=== PATIENT | female | born 1950 | race Caucasian/White ===

== ENCOUNTER 2017-06-08 23:30 | Observation (INO) | payer BC, MEDICARE ==
--- NOTE | 2017-06-09 01:00 | US ---
EXAMINATION TYPE: US transvaginal DATE OF EXAM: 06/09/2017 COMPARISON: NONE CLINICAL HISTORY: Pain. Pain f/u to outside ct scan. Exam limitations due to right adnexal mass. TECHNIQUE: Transabdominal (TA). Transabdominal sonographic images of the pelvis were acquired. EXAM MEASUREMENTS: Uterus: 8.0 x 4.8 x 5.9 cm Endometrial Stripe: 1.0 cm 1. Uterus: Anteverted 2. Endometrium: Appears enlarged 3. Right Ovary: Appears to be16.2 x19 x 20.3 cm 4. Left Ovary: Obscured by overlying bowel gas. 5. Bilateral Adnexa: Complex septated right ovary vs mass measuring 16.2 x 19 x 20.3cm with small am ount of blood flow seen. 6. 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 No rmal uterus. No free fluid.
--- NOTE | 2017-06-09 01:04 | ED ---
Abdominal Pain HPI - General Chief Complaint: Abdominal Pain Stated Complaint: abd pain Time Seen by Provider: 06/08/17 23:43 Source: EMS, RN notes reviewed, old records reviewed Mode of arrival: EMS Limitations: no limitations - History of Present Illness Initial Comments: This patient is a 66-year-old female who is a transfer from [facility] with findings of a very large abdominal mass. It is believed to be a large right ovarian cyst. She initially presented to [facility] due to abdominal pain and bloating as well as some back pain. Patient reports that she's had no fever or chills. No vomiting or diarrhea. She also reports that she's had a known history of compression fractures to her lumbar spine. She states she sees his lead painter for this. Patient reports that she is not a drinker, and she denies any chest pain or pressure. No dyspnea or coughing. Patient had extensive evaluation at [facility]. Patient's lab work was reviewed to be relatively normal. Patient reports that her SENIOR INTEGRATION ARCHITECT is Dr. Rosenberg. - Related Data Home Medications Medication Instructions Recorded Confirmed Enalapril Maleate [Enalapril 20 mg PO BID 04/08/14 03/18/15 Maleate] Fenofibrate [Fenofibrate] 160 mg PO DAILY 04/08/14 03/18/15 Fish Oil/Dha/Epa [Fish Oil 1,200 1 each PO DAILY 04/08/14 03/18/15 mg Fish Oil] Furosemide [Furosemide] 40 mg PO DAILY 04/08/14 03/18/15 Multivitamin with Iron [Daily 1 each PO DAILY 04/08/14 03/18/15 Multivitamin with Iron] Potassium Chloride [Klor-Con M10] 10 meq PO DAILY 04/08/14 03/18/15 Propranolol HCl [Propranolol HCl 120 mg PO HS 04/08/14 03/18/15 ER] RX: Aspirin 81 mg PO DAILY 04/08/14 03/18/15 RX: Biotin 10,000 mcg PO DAILY 04/08/14 03/18/15 Rosuvastatin [Crestor] 20 mg PO HS 04/08/14 03/18/15 metFORMIN HCL [metFORMIN HCL] 1,000 mg PO BID 04/08/14 03/18/15 Cholecalciferol [Vitamin D3] 2,000 unit PO DAILY 03/14/15 03/18/15 Estroven (Unknown Dose) 1 tab PO DAILY 03/14/15 03/14/15 Glucosam/Lio-Msm1/C/Oren/Bosw 1 each PO DAILY 03/14/15 03/18/15 [Glucosamine-Chondroitin Tablet] amLODIPine [Norvasc] 5 mg PO HS 03/14/15 03/18/15 Allergies Allergy/AdvReac Type Severity Reaction Status Date / Time nitroglycerin Allergy Severe BP DROPPED Verified 03/14/15 14:16 EXTREMELY LOW Penicillins Allergy Mild Rash/Hives Verified 03/14/15 14:16 erythromycin base AdvReac Mild HEADACHE Verified 03/14/15 14:16 codeine AdvReac Confusion Verified 03/14/15 14:16 Review of Systems ROS Statement: Those systems with pertinent positive or pertinent negative responses have been documented in the HPI. ROS Other: All systems not noted in ROS Statement are negative. Past Medical History Past Medical History: Diabetes Mellitus, Hyperlipidemia, Hypertension Additional Past Medical History / Comment(s): HEART MURMUR, HX OF HEPATITIS @ 4 YRS OLD, HX OF ANEMIA. , HAVING DIFFICULTY PASSING STOOL SINCE SHE HAD A HEMATOMA ON HER BUTTOCK FROM A FALL JAN 2014. History of Any Multi-Drug Resistant Organisms: MRSA Date of last positivie culture/infection: 2010 MDRO Source:: BEE STING Past Surgical History: Section Additional Past Surgical History / Comment(s): PARATHYROID,TRIGGER FINGERS, C- SECTION X3, I & D OF HEMATOMA ON LEFT BUTTOCK. Past Anesthesia/Blood Transfusion Reactions: No Reported Reaction Past Psychological History: Depression Smoking Status: Never smoker Past Alcohol Use History: None Reported Past Drug Use History: None Reported - Past Family History Mother Family Medical History: No Reported History General Exam - General Exam Comments Initial Comments: This is a 66-year-old female. Patient is pleasant. No acute distress. Limitations: no limitations General appearance: alert, in no apparent distress Head exam: Present: atraumatic, normocephalic, normal inspection Eye exam: Present: normal appearance, PERRL, EOMI. Absent: scleral icterus, conjunctival injection, periorbital swelling ENT exam: Present: normal exam Neck exam: Present: normal inspection. Absent: tenderness, meningismus, lymphadenopathy Respiratory exam: Present: normal lung sounds bilaterally. Absent: respiratory distress, wheezes, rales, rhonchi, stridor Cardiovascular Exam: Present: regular rate, normal rhythm, normal heart sounds. Absent: systolic murmur, diastolic murmur, rubs, gallop, clicks GI/Abdominal exam: Present: soft, tenderness (Patient has a protuberant abdomen evidence of large firm mass noted while palpating the abdomen.), normal bowel sounds. Absent: distended, guarding, rebound, rigid Extremities exam: Present: normal inspection, full ROM, normal capillary refill. Absent: tenderness, pedal edema, joint swelling, calf tenderness Back exam: Present: normal inspection Neurological exam: Present: alert, oriented X3, CN II-XII intact Psychiatric exam: Present: normal affect, normal mood Course Vital Signs 06/08/17 23:33 Temperature 98.2 F Pulse Rate 74 Respiratory 16 Rate Blood Pressure 156/76 O2 Sat by Pulse 95 Oximetry Medical Decision Making - Medical Decision Making This patient is a 66-year-old female transferred from [facility] for very large ovarian mass. He appears the patient has a lobulated 24 cm x 18 cm midline abdomen mass rising from her right ovary. Patient had extensive workup at [facility]. Her labwork is all reviewed and normal. She does have very significant abdominal distention and a firm mass noted on palpation. Patient was transferred here for further evaluation and gynecologic consult. I did obtain more blood work including CBC, and we'll send a CEA 125 test. He completed ultrasound which shows the cyst again. Patient informed of all these. She does state that her SENIOR INTEGRATION ARCHITECT is Dr. De Leon. For this large mass patient will be admitted at this time to her primary care doctor consults to Dr. Rosenberg for possible surgery. All questions were answered and patient agrees to admission. - Lab Data Result diagrams: 06/09/17 01:16 Lab Results 06/09/17 Range/Units 01:16 WBC 10.2 (3.8-10.6) k/uL RBC 5.42 H (3.80-5.40) m/uL Hgb 15.5 (11.4-16.0) gm/dL Hct 45.8 (34.0-46.0) % MCV 84.6 (80.0-100.0) fL MCH 28.6 (25.0-35.0) pg MCHC 33.8 (31.0-37.0) g/dL RDW 13.0 (11.5-15.5) % Plt Count 303 (150-450) k/uL Neutrophils % 92 % Lymphocytes % 6 % Monocytes % 1 % Eosinophils % 0 % Basophils % 0 % Neutrophils # 9.3 H (1.3-7.7) k/uL Lymphocytes # 0.6 L (1.0-4.8) k/uL Monocytes # 0.1 (0-1.0) k/uL Eosinophils # 0.0 (0-0.7) k/uL Basophils # 0.0 (0-0.2) k/uL - Radiology Data Radiology results: report reviewed Patient had a CT scan performed at [facility]. This was uploaded into our PACS system. The CT lumbar spine without contrast shows evidence of spondylolisthesis of L5 secondary L5 L1 spinal will listhesis. This appears chronic. No fractures noted. No evidence of bony spinal stenosis. There is a developing the adequate spinal no. Patient's CT abdomen and pelvis with contrast showed no evidence of a very large new cystic pelvic mass in the midline. Probably arising from the left ovary. Uterus is displaced to the right side. A cystic ovarian tumor. Mild colonic diverticulosis. No evidence of diverticulitis. There is clearing of the cystic area on the right ovary compared to old exam. The ovarian mass measures 24 x 18 cm in the midline of the abdomen. Ultrasound was performed to this facility. There is a multi septated large cystic pelvic mass consistent with right ovarian tumor. Normal uterus. No free fluid. Disposition Clinical Impression: Ovarian mass, right, Abdominal pain Disposition: ADMITTED IP TO THIS HOSP Condition: Stable Referrals: Rob Plaza MD [Primary Care Provider] - 1-2 days Time of Disposition: 01:35
[2017-06-09] MEDS: SODIUM CHLORIDE 0.9% 1,000 ML IV SCH ×3 (01:08→19:54)
[2017-06-09 01:22] LABS: Basophils % (A) 0 %; Eosinophils % (A) 0 %; HCT 45.8 % (34.0-46.0); HGB 15.5 gm/dL (11.4-16.0); Lymphocytes # (A) 0.6 k/uL (1.0-4.8); Lymphocytes % (A) 6 %; MCH 28.6 pg (25.0-35.0); MCHC 33.8 g/dL (31.0-37.0); MCV 84.6 fL (80.0-100.0); Mean Platelet Volume 7.4; Monocytes # (A) 0.1 k/uL (0-1.0); Monocytes % (A) 1 %; Neutrophils # (A) 9.3 k/uL (1.3-7.7); Neutrophils % (A) 92 %; Platelet Count 303 k/uL (150-450); RBC 5.42 m/uL (3.80-5.40); WBC 10.2 k/uL (3.8-10.6)
[2017-06-09] MEDS ORDERED: ESCITALOPRAM 10 MG TAB PO STA (01:29)
[2017-06-09] MEDS ORDERED: ATORVASTATIN 40 MG TAB PO STA (01:29)
[2017-06-09] MEDS ORDERED: amLODIPine 5 MG TAB PO STA (01:29)
[2017-06-09 01:33] LABS: Partial Thromboplastin Time 23.2 sec (22.0-30.0)
[2017-06-09] MEDS ORDERED: BISACODYL 5 MG TABLET.DR PO PRN (01:38)
[2017-06-09] MEDS ORDERED: NALOXONE 0.4 MG/ML 1 ML VIAL IV PRN (01:38)
[2017-06-09] MEDS ORDERED: ONDANSETRON 4 MG/2 ML VIAL IVP PRN (01:38)
[2017-06-09 01:40] LABS: Albumin 4.6 g/dL (3.5-5.0); Calcium 9.9 mg/dL (8.4-10.2); Total Bilirubin 0.9 mg/dL (0.2-1.3); Total Protein 7.6 g/dL (6.3-8.2)
[2017-06-09 01:41] LABS: Potassium 4.7 mmol/L (3.5-5.1)
[2017-06-09 02:17] LABS: Appearance,Urine Clear (Clear); Bilirubin,Urine Negative (Negative); Blood,Urine Negative (Negative); Color,Urine Light Yellow; Glucose,Urine (UA) 3+ (Negative); Ketones,Urine Negative (Negative); Leukocyte Esterase,Urine Negative (Negative); Nitrite,Urine Negative (Negative); Protein,Urine Negative (Negative); Specific Gravity,Urine 1.033 (1.001-1.035); Urobilinogen,Urine <2.0 mg/dL (<2.0)
[2017-06-09] MEDS: MORPHINE SULFATE 4 MG/ML SYRINGE IV PRN ×2 (02:35→06:18)
[2017-06-09] MEDS: KETOROLAC 30 MG/ML 1 ML VIAL IVP PRN ×2 (04:00→11:23)
[2017-06-09 04:23] VITALS: BMI 39.1
[2017-06-09] MEDS ORDERED: NON-FORMULARY DRUG (Biotin [Biotin] 10,000 MCG) PO SCH (09:00)
[2017-06-09] MEDS ORDERED: ESTROVEN PO SCH (09:00)
[2017-06-09] MEDS ORDERED: NON-FORMULARY DRUG (Fish Oil/Dha/Epa [Fish Oil 1,200 Mg Fish Oil] 1 EACH) PO SCH (09:00)
[2017-06-09] MEDS ORDERED: PANTOPRAZOLE 40 MG/10 ML VIAL IV SCH (09:00)
[2017-06-09] MEDS ORDERED: NON-FORMULARY DRUG (Glucosam/Chon-Msm1/C/Mang/Bosw [Glucosamine-Chondroitin Tablet] 1 EACH PO SCH (09:00)
--- NOTE | 2017-06-09 10:20 | P.HPIM ---
History of Present Illness H&P Date: 06/09/17 Chief Complaint: abdominal pain 66-year-old female who presented to [facility] on 06/08 with a chief complaint of abdominal pain. she was found to have a large right ovarian mass and was transferred to [facility] for further evaluation. The patient states that she has a history of diverticulitis and she was relating the abdominal pain to her diverticulitis. She states however the pain did not improve and at that point she knew it was not due to her diverticulitis. She does report a history of abdominal distention recently. She denies nausea or vomiting. Denies chest pain or pressure. Denies shortness of breath. The patient has a history of diabetes mellitus, hyperlipidemia, hypertension, depression, diverticulosis, diverticulitis, a hematoma on her left buttock that required I&D after she sustained a fall. She does have a history of chronic back pain and sees a pain specialist. the patient underwent a CT lumbar spine without contrast at [facility] which shows evidence of spondylolisthesis of L5 which appears chronic per ER documentation. 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 Normal uterus. No free fluid. Mass measuring 16.219 20.3 cm Laboratory data: WBC 10.2. Hemoglobin 15.5. Platelet count 303. Sodium 138. Potassium 4.7. BUN 18. Creatinine 0.80. Glucose 251. Urinalysis reveals: 3+ glucose, but otherwise unremarkable The patient was admitted to the hospital under the care of Dr. Umana. Consultations were placed to [facility]USHER. Review of Systems GENERAL: Patient denies fever. Denies chills. EYES: Denies blurred vision. Denies vision changes. Denies eye pain. EARS, NOSE, MOUTH, & THROAT: Denies headache. Denies sore throat. Denies ear pain. RESPIRATORY: Denies cough. Denies shortness of breath. Denies sputum production. Denies hemoptysis. CARDIOVASCULAR: Denies chest pain or pressure. Denies palpitations. Denies arrhythmias. GASTROINTESTINAL: Positive for history of diverticulosis and diverticulitis. Positive for abdominal pain. Positive for abdominal distention. Denies diarrhea. Denies constipation. Denies nausea. Denies vomiting. Denies heartburn. Denies blood in the stool. GENITOURINARY: Denies urinary frequency. Denies burning. Denies dysuria. Denies cloudy urine. Denies blood in the urine. MUSCULOSKELETAL: Positive for chronic back pain. Denies myalgias. Denies joint swelling. Denies decreased range of motion beyond patients baseline. INTEGUMENTARY: Denies pruitis. Denies rash. PSYCHIATRIC: Denies suicidal or homicial ideations. ENDOCRINE: Denies weight change. Denies polydipsia. Denies polyuria. HEMATOLOGIC: Denies bleeding disorders. Past Medical History Past Medical History: Diabetes Mellitus, Hyperlipidemia, Hypertension Additional Past Medical History / Comment(s): HEART MURMUR, HX OF HEPATITIS @ 4 YRS OLD, HX OF ANEMIA. , HAVING DIFFICULTY PASSING STOOL SINCE SHE HAD A HEMATOMA ON HER BUTTOCK FROM A FALL JAN 2014. History of Any Multi-Drug Resistant Organisms: MRSA Date of last positivie culture/infection: 2010 MDRO Source:: BEE STING Past Surgical History: Appendectomy, Section Additional Past Surgical History / Comment(s): PARATHYROID,TRIGGER FINGERS, C- SECTION X3, I & D OF HEMATOMA ON LEFT BUTTOCK. Past Anesthesia/Blood Transfusion Reactions: No Reported Reaction Smoking Status: Never smoker - Past Family History Father Family Medical History: Hyperlipidemia, Myocardial Infarction ([place]) Additional Family Medical History / Comment(s): Father of heart attack at 92 years old. Mother Family Medical History: Diabetes Mellitus, Myocardial Infarction ([place]) Additional Family Medical History / Comment(s): Mom of heart attack at 54 years old. Medications and Allergies Home Medications Medication Instructions Recorded Confirmed Type Aspirin 81 mg PO DAILY 04/08/14 06/09/17 History Biotin 10 mg PO DAILY 04/08/14 06/09/17 History Enalapril Maleate [Enalapril 20 mg PO BID 04/08/14 06/09/17 History Maleate] Fenofibrate [Fenofibrate] 160 mg PO DAILY 04/08/14 06/09/17 History Fish Oil/Dha/Epa [Fish Oil 1,200 1 cap PO DAILY 04/08/14 06/09/17 History mg Fish Oil] Furosemide [Furosemide] 40 mg PO DAILY 04/08/14 06/09/17 History Multivitamin with Iron [Daily 1 tab PO DAILY 04/08/14 06/09/17 History Multivitamin with Iron] Potassium Chloride [Klor-Con M10] 10 meq PO DAILY 04/08/14 06/09/17 History Propranolol HCl [Propranolol HCl 120 mg PO HS 04/08/14 06/09/17 History ER] Rosuvastatin [Crestor] 20 mg PO HS 04/08/14 06/09/17 History metFORMIN HCL [metFORMIN HCL] 1,000 mg PO BID 04/08/14 06/09/17 History Cholecalciferol [Vitamin D3] 2,000 unit PO DAILY 03/14/15 06/09/17 History Glucosam/Lio-Msm1/C/Oren/Bosw 1 tab PO DAILY 03/14/15 06/09/17 History [Glucosamine-Chondroitin Tablet] amLODIPine [Norvasc] 5 mg PO HS 03/14/15 06/09/17 History Escitalopram [Lexapro] 10 mg PO DAILY 06/09/17 06/09/17 History Phentermine HCl [Adipex-P] 37.5 mg PO DAILY 06/09/17 06/09/17 History Soy Isofla/Blk Cohosh/Mag Bark 155 mg PO DAILY 06/09/17 06/09/17 History [Estroven 155 mg Capsule] Allergies Allergy/AdvReac Type Severity Reaction Status Date / Time nitroglycerin Allergy Severe BP DROPPED Verified 06/09/17 09:21 EXTREMELY LOW Penicillins Allergy Mild Rash/Hives Verified 06/09/17 09:21 amoxicillin Allergy Unknown Verified 06/09/17 09:21 iodine Allergy Unknown Verified 06/09/17 09:21 erythromycin base AdvReac Mild HEADACHE Verified 06/09/17 09:21 codeine AdvReac Confusion Verified 06/09/17 09:21 Physical Exam Vitals: Vital Signs Temp Pulse Pulse Resp BP BP Pulse Ox 06/09/17 07:43 98.4 F 69 18 130/73 97 06/09/17 04:11 98.3 F 18 140/59 95 06/09/17 04:10 98.3 F 70 18 140/59 95 06/09/17 02:54 97.9 F 72 16 146/72 97 06/08/17 23:33 98.2 F 74 16 156/76 95 Intake and Output 06/08/17 06/09/17 06/09/17 22:59 06:59 14:59 Intake Total 200 Balance 200 Intake: Intake, IV Titration 200 Amount Sodium Chloride 0.9% 1, 200 000 ml @ 100 mls/hr IV . Q10H [facility] Rx#:[id number] Other: Weight 113.3 kg GENERAL: This is a 66-year-old female in no apparent distress at the time of examination. Pleasant and cooperative. HEENT: Head is atraumatic, normocephalic. Pupils are equal, round, and reactive to light. Sclerae anicteric. Conjunctivae are clear. Mucus membranes of the mouth are moist. Neck is supple. RESPIRATORY: Clear to ausculation. No wheezes, rales, or rhonchi. No use of accessory muscles. Patient maintaining oxygen saturation greater than 92%. No chest wall tenderness is noted on palpation or with deep breathing. CARDIOVASCULAR: Regular rate and rhythm. S1 and S2 noted. No systolic or diastolic murmur auscultated. No JVD noted. No S3 or S4 noted. GASTROINTESTINAL: abdomen soft and round but significantly distended. palpable mass. bowel sounds auscultated x 4 quadrants. No pain or tenderness noted upon palpation. INTEGUMENTARY: No cyanosis. No jaundice. No rashes noted. No cellulitis noted. EXTREMITIES: 2+ peripheral pulses. No evidence of peripheral edema. No calf tenderness noted. NEUROLOGIC: Cranial nerves II-XII intact. PSYCHIATRIC: Awake, alert, and oriented X 3. Appropriate affect. Intact judgement and insight. Results CBC & Chem 7: 06/09/17 01:16 06/09/17 01:16 Labs: Abnormal Lab Results - Last 24 Hours (Table) 06/09/17 06/09/17 06/09/17 Range/Units 01:16 01:16 02:07 RBC 5.42 H (3.80-5.40) m/uL Neutrophils # 9.3 H (1.3-7.7) k/uL Lymphocytes # 0.6 L (1.0-4.8) k/uL Carbon Dioxide 21 L (22-30) mmol/L BUN 18 H (7-17) mg/dL Glucose 251 H (74-99) mg/dL Alkaline Phosphatase 36 L (38-126) U/L Urine Glucose (UA) 3+ H (Negative) Thrombosis Risk Factor Assmnt - Choose All That Apply Each Factor Represents 1 point: Obesity (BMI >25) Each Risk Factor Represents 2 Points: Age 61-74 years Thrombosis Risk Factor Assessment Total Risk Factor Score: 3 Thrombosis Risk Factor Assessment Level: Moderate Risk Assessment and Plan Plan: ASSESSMENT: Complaints of abdominal pain and distention, pelvic ultrasound reveals right ovarian mass measuring 16.64368.3 cm Diabetes mellitus, type II, hemoglobin A1c pending Essential hypertension Hyperlipidemia Chronic back pain Depression, unspecified Obesity: BMI 39.1 PLAN: [facility]USHER on consult. Await further recommendations and input Continue IV fluids at 100 mL an hour Obtain hemoglobin A1c Capillary blood glucose accu-checks AC/HS NovoLog sliding scale insulin coverage AC/HS Home meds as appropriate Monitor labs GI prophylaxis: Protonix 40 mg IV Daily DVT prophylaxis: GUERO hose to bilateral lower extremities Monitor vital signs and address as appropriate Discharge planning: Patient to return home when stable Further recommendations pending patient's course Nurse practitioner note has been reviewed by physician. Signing provider agrees with the documented findings, assessment, and plan of care.
[2017-06-09] MEDS: metFORMIN 500 MG TAB PO SCH ×3 (10:23→18:15)
[2017-06-09] MEDS: FENOFIBRATE 160 MG TAB PO SCH (10:23)
[2017-06-09] MEDS: ASPIRIN 81 MG PO SCH (10:23)
[2017-06-09 12:24] LABS: Glucose,Whole Blood 116 mg/dL (75-99)
[2017-06-09] MEDS: CHOLECALCIFEROL 1,000 UNIT TAB PO SCH (13:19)
[2017-06-09] MEDS: INSULIN ASPART 100 UNIT/ML 1 ML 10 ML VIAL SQ SCH ×3 (13:20→21:00)
[2017-06-09] MEDS: MULTIVITAMINS, THERA 1 EACH TAB PO SCH (13:20)
--- NOTE | 2017-06-09 13:21 | CONS ---
CONSULTATION DATE OF CONSULTATION: 06/09/2017. The patient is a 66-year-old, 3, para 3-0-0-4 who presented through the emergency room this morning with acute abdominal, particularly right lower quadrant, pain. She has a longstanding history of diverticulitis and lumbar compression fractures, which, when the pain began in the last several days, she attributed it to. The pain however significantly worsened yesterday in the morning and she was taken by ambulance to [facility] Emergency Room. In the emergency room, she underwent a CT scan, which is not in my possession at the time of this dictation, but demonstrated a roughly 25 cm loculated mass appearing to arise from the right adnexal region. There was no evidence of free fluid. She was transferred to [facility] as there was no [facility]BOUND TEACHER services at [facility]. She was admitted through her primary care doctor and I was consulted. Upon questioning, the patient has not had a pelvic exam in quite some time. She denies any anorexia or GI symptoms otherwise. She and her daughter both report that they felt her abdomen has been enlarging fairly significantly recently and had simply thought she had been gaining weight. Ultrasound done in the emergency room here confirmed the findings of a large loculated pelvic mass originating from the right adnexa. There appeared to be no free fluid. There were no other obvious findings. On questioning, the patient and her daughter feel that the pain is acute enough that she cannot be discharged home to manage as an outpatient and referred to HOMEBOUND TEACHER oncology in that setting. As a result, I have discussed the case with Dr. Charline Garcia, HOMEBOUND TEACHER Oncologist in the [facility], who has agreed to accept transfer of the patient given the concern for the possibility of malignancy. PAST MEDICAL HISTORY: Significant for hypertension, diabetes, hypercholesterolemia, diverticulitis. PAST SURGICAL HISTORY: Multiple with multiple orthopedic procedures on her hand including bilateral carpal tunnel and multiple trigger finger releases. She additionally has had 3 sections and a surgery for parathyroid concern. She denies any anesthetic concerns. OBSTETRICAL HISTORY: 3, para 3-0-0-4 with 3 term sections, 1 of which was for twins. She has been menopausal for quite some time. GYNECOLOGIC HISTORY: Unremarkable with some question as to when her last Pap smear was performed. Her primary care doctors typically managed her gynecologic concerns. SOCIAL HISTORY: The patient is and a homemaker. She is a nonsmoker and denies any alcohol of any significance and there are no other social concerns. FAMILY HISTORY: Noncontributory. MEDICATIONS AND ALLERGIES: As outlined in the chart. REVIEW OF SYSTEMS: Is confined to history of present illness. PHYSICAL EXAMINATION: In general, this is a well-developed, moderately obese white female in no acute distress after pain medication. Her heart has a regular rhythm and rate without murmur. Her lungs are clear to auscultation bilaterally in all [place]. Her abdomen is significantly distended with a very firm palpable mass in the right half of her abdomen. Her left abdomen is soft and nontender. There is minimal tenderness in the right lower quadrant at this time. Her extremities are without any cyanosis, clubbing, or edema and are nontender to palpation bilaterally. Bimanual pelvic examination is deferred as it is unlikely to bear any new information. ASSESSMENT AND PLAN: 20+ cm right ovarian complex mass with acute abdominal pain: I have discussed that this case would best be managed by a HOMEBOUND TEACHER Oncologist given the potential for a malignancy. The acuity of her pain does not allow for her to be discharged home and followed up as a referral in HOMEBOUND TEACHER Oncology as an outpatient. As a result, I have discussed the case with Dr. Charline Garcia in the [facility], who is a HOMEBOUND TEACHER Oncologist and has agreed to accept her transfer. As surgery is not likely to occur today, she will be allowed to eat in the short term as she is hungry. She will be transferred directly to the [facility] at the [facility] in [place] for further ongoing diagnosis and treatment at the hands of Dr. Garcia. No tumor markers need be drawn here as they will draw the tumor markers they are interested in at her arrival at [facility]. MMODL / IJN: [id number] /
[2017-06-09] MEDS: LISINOPRIL 20 MG TAB PO SCH ×2 (13:22→20:59)
[2017-06-09] MEDS: FUROSEMIDE 40 MG TAB PO SCH (13:22)
[2017-06-09] MEDS: POTASSIUM CHLORIDE ER 10 MEQ TAB.ER.PRT PO SCH (13:23)
[2017-06-09 13:39] VITALS: RESP 16
--- NOTE | 2017-06-09 14:12 | P.TRANS ---
Providers Date of admission: 06/09/17 01:21 Expected date of discharge: 06/09/17 Attending physician: Aristeo Umana Consults: 06/09/17 01:38 Consult Physician Stat Consulting Provider: Rakesh Rosenberg Consult Reason/Comments: Large Ovarian Mass, Abdominal Pain Do you want consulting provider notified?: Yes, Notify in am Primary care physician: [facility] Course: 66-year-old female who presented to [facility] on 06/08 with a chief complaint of abdominal pain. she was found to have a large right ovarian mass and was transferred to [facility] for further evaluation. The patient states that she has a history of diverticulitis and she was relating the abdominal pain to her diverticulitis. She states however the pain did not improve and at that point she knew it was not due to her diverticulitis. She does report a history of abdominal distention recently. She denies nausea or vomiting. Denies chest pain or pressure. Denies shortness of breath. The patient has a history of diabetes mellitus, hyperlipidemia, hypertension, depression, diverticulosis, diverticulitis, a hematoma on her left buttock that required I&D after she sustained a fall. She does have a history of chronic back pain and sees a pain specialist. the patient underwent a CT lumbar spine without contrast at [facility] which shows evidence of spondylolisthesis of L5 which appears chronic per ER documentation. 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 Normal uterus. No free fluid. Mass measuring 16.219 20.3 cm Laboratory data: WBC 10.2. Hemoglobin 15.5. Platelet count 303. Sodium 138. Potassium 4.7. BUN 18. Creatinine 0.80. Glucose 251. Urinalysis reveals: 3+ glucose, but otherwise unremarkable The patient was admitted to the hospital under the care of Dr. Umana. Consultations were placed to DESK CLERK. The patient was evaluated by Dr. Ware. He recommends transferring the patient to [facility] to undergo surgical procedure with DESK CLERK oncology. Transfer okay with Dr. Umana The patient was accepted at [facility] by Dr. Charline Garcia. She was transferred in stable condition. She is to follow up outpatient with Dr. Umana after she is discharged from [facility]. DISCHARGE DIAGNOSIS: Complaints of abdominal pain and distention, pelvic ultrasound reveals right ovarian mass measuring 16.87367.3 cm Diabetes mellitus, type II, hemoglobin A1c pending Essential hypertension Hyperlipidemia Chronic back pain Depression, unspecified Obesity: BMI 39.1 Nurse practitioner note has been reviewed by physician. Signing provider agrees with the documented findings, assessment, and plan of care. Patient Condition at Discharge: Stable Plan - Transfer Summary Transfer Medications: Active Medications Generic Name Dose Route Start Last Admin Trade Name Freq PRN Reason Stop Dose Admin Amlodipine Besylate 5 mg 06/09/17 21:00 Norvasc PO HS [facility] Aspirin 81 mg 06/09/17 09:00 06/09/17 10:23 Aspirin PO Not Given DAILY JUS Atorvastatin Calcium 40 mg 06/09/17 21:00 Lipitor PO HS [facility] Bisacodyl 5 mg 06/09/17 01:38 Dulcolax PO DAILY PRN Constipation Cholecalciferol 2,000 unit 06/09/17 12:00 06/09/17 13:19 Vitamin D3 PO Not Given DAILY@1200 JUS Fenofibrate 160 mg 06/09/17 09:00 06/09/17 10:23 Lofibra PO Not Given DAILY JUS Furosemide 40 mg 06/09/17 09:00 06/09/17 13:22 Lasix PO 40 mg DAILY JUS Administration Sodium Chloride 1,000 mls @ 100 mls/hr 06/09/17 00:15 06/09/17 10:36 Saline 0.9% IV 100 mls/hr .Q10H JUS Administration Insulin Aspart 0 unit 06/09/17 12:30 06/09/17 13:20 Novolog SQ Not Given ACHS [facility] Protocol Ketorolac Tromethamine 15 mg 06/09/17 01:38 06/09/17 11:23 Toradol IVP 06/14/17 01:39 15 mg Q6HR PRN Administration Moderate Pain Lisinopril 40 mg 06/09/17 09:00 06/09/17 13:22 Zestril PO 40 mg BID JUS Administration Metformin HCl 1,000 mg 06/09/17 07:30 06/09/17 10:23 Glucophage PO Not Given BID-W/MEALS JUS Morphine Sulfate 4 mg 06/09/17 01:38 06/09/17 06:18 Morphine Sulfate (Inj) IV 4 mg Q4HR PRN Administration Severe Pain Multivitamins 1 each 06/09/17 12:00 06/09/17 13:20 Theragran PO Not Given DAILY@1200 JUS Naloxone HCl 0.2 mg 06/09/17 01:38 Narcan IV Q2M PRN Opioid Reversal Ondansetron HCl 4 mg 06/09/17 01:38 Zofran IVP Q8HR PRN Nausea And Vomiting Pantoprazole Sodium 40 mg 06/10/17 07:30 Protonix PO AC-BRKFST JUS Potassium Chloride 10 meq 06/09/17 09:00 06/09/17 13:23 K-Dur 10 PO 10 meq DAILY JUS Administration Propranolol HCl 120 mg 06/09/17 21:00 Inderal La PO HS JUS Follow up Appointment(s)/Referral(s): Rob Plaza MD [Primary Care Provider] - 1 Week Activity/Diet/Wound Care/Special Instructions: HOLD METFORMIN FOR [address] W/CONTRAST 06/08/2017 AT 2000 Discharge Disposition: OTHER INSTITUTION NOT DEFINED
[2017-06-09 17:12] LABS: Glucose,Whole Blood 142 mg/dL (75-99)
[2017-06-09] MEDS: MORPHINE ORAL SOLN 10 MG/5 ML CUP PO PRN (17:44)
[2017-06-09] MEDS: DOCUSATE 100 MG CAP PO SCH (19:53)
[2017-06-09 20:59] LABS: Glucose,Whole Blood 111 mg/dL (75-99)
[2017-06-09] MEDS ORDERED: PROPRANOLOL LA 60 MG CAP.SA.24H PO SCH (21:00)
[2017-06-09] MEDS ORDERED: amLODIPine 5 MG TAB PO SCH (21:00)
[2017-06-09] MEDS ORDERED: ATORVASTATIN 40 MG TAB PO SCH (21:00)
[2017-06-09 21:52] LABS: Hemoglobin A1C 6.1 % (4.0-6.0)
[2017-06-10] MEDS: MORPHINE ORAL SOLN 10 MG/5 ML CUP PO PRN ×2 (00:08→15:56)
[2017-06-10] MEDS: SODIUM CHLORIDE 0.9% 1,000 ML IV SCH ×2 (05:30→14:28)
[2017-06-10] MEDS: INSULIN ASPART 100 UNIT/ML 1 ML 10 ML VIAL SQ SCH ×2 (07:08→12:34)
[2017-06-10 07:11] LABS: Glucose,Whole Blood 107 mg/dL (75-99)
[2017-06-10] MEDS: metFORMIN 500 MG TAB PO SCH (07:20)
[2017-06-10] MEDS ORDERED: PANTOPRAZOLE 40 MG TABLET PO SCH (07:30)
[2017-06-10] MEDS: ASPIRIN 81 MG PO SCH (08:37)
[2017-06-10] MEDS: DOCUSATE 100 MG CAP PO SCH (08:37)
[2017-06-10] MEDS: FENOFIBRATE 160 MG TAB PO SCH (08:37)
[2017-06-10] MEDS: FUROSEMIDE 40 MG TAB PO SCH (08:38)
[2017-06-10] MEDS: LISINOPRIL 20 MG TAB PO SCH (08:38)
[2017-06-10] MEDS: POTASSIUM CHLORIDE ER 10 MEQ TAB.ER.PRT PO SCH (08:39)
[2017-06-10] MEDS ORDERED: BISACODYL 5 MG TABLET.DR PO STA (09:24)
[2017-06-10] MEDS ORDERED: DOCUSATE 100 MG CAP PO SCH ×2 (09:30→21:00)
--- NOTE | 2017-06-10 09:51 | P.PN ---
Progress Note - Text Progress Note Date: 06/10/17 Patient seen and examined at the bedside. Patient remains stable. Patient is awaiting insurance authorization for transfer to [facility]. Patient complains of constipation. Colace 100mg BID and dulcolax 10mg PO x 1 dose ordered. Anticipate transfer to [facility] today pending insurance authorization. Nurse practitioner note has been reviewed by physician. Signing provider agrees with the documented findings, assessment, and plan of care.
[2017-06-10 12:12] LABS: Glucose,Whole Blood 116 mg/dL (75-99)
[2017-06-10] MEDS: CHOLECALCIFEROL 1,000 UNIT TAB PO SCH (12:27)
[2017-06-10] MEDS: MULTIVITAMINS, THERA 1 EACH TAB PO SCH (12:29)
[2017-06-10 12:57] VITALS: BP 122/63; PULSE 65; TEMP 98.5
== END 2017-06-10 16:35 | disposition other institution (70) ==
LOC: EC 23:30 → 6PED 06-09 01:21
PROVIDERS: ADMIT Family Medicine; ATTEND Family Medicine
DX: N83.201 Unspecified ovarian cyst, right side (principal); E11.9 Type 2 diabetes mellitus without complications; I10 Essential (primary) hypertension; E78.5 Hyperlipidemia, unspecified; G89.29 Other chronic pain; M54.9 Dorsalgia, unspecified; F32.9 Major depressive disorder, single episode, unspecified; E66.9 Obesity, unspecified; Z68.39 Body mass index [BMI] 39.0-39.9, adult; K59.00 Constipation, unspecified; E78.00 Pure hypercholesterolemia, unspecified; D64.9 Anemia, unspecified; K57.92 Diverticulitis of intestine, part unspecified, without perforation or abscess without bleeding; Z79.899 Other long term (current) drug therapy; Z79.82 Long term (current) use of aspirin; Z79.84 Long term (current) use of oral hypoglycemic drugs; Z88.0 Allergy status to penicillin; Z88.5 Allergy status to narcotic agent; Z88.8 Allergy status to other drugs, medicaments and biological substances; Z88.1 Allergy status to other antibiotic agents; Z86.14 Personal history of Methicillin resistant Staphylococcus aureus infection; Z82.49 Family history of ischemic heart disease and other diseases of the circulatory system; M48.56XA Collapsed vertebra, not elsewhere classified, lumbar region, initial encounter for fracture; R01.1 Cardiac murmur, unspecified; M43.16 Spondylolisthesis, lumbar region; K57.90 Diverticulosis of intestine, part unspecified, without perforation or abscess without bleeding
CPT/HCPCS: 76856; 80053; 81003; 83036; 85025; 85610; 85730; 86304; 96361; 96374; 96375; 96376; 99285

== ENCOUNTER 2018-02-28 06:55 | Day surgery (SDC) | payer BC ==
[2018-02-23 10:56] VITALS: BMI 32.5
[~2018-02-28 06:55] MED LIST: DEXAMETHASONE SOD PHOSPHATE 10 MG/ML 1 ML VIAL IV ONE; HEPARIN SODIUM,PORCINE 5,000 UNIT/ML 1 ML VIAL SQ ONE; LACTATED RINGERS 1,000 ML IV SCH; LIDOCAINE 1% 20 ML VIAL (10MG/ML) FOR IV START INTRADERMA PRN; ONDANSETRON 4 MG/2 ML VIAL IVP ONE; SCOPOLAMINE 1.5MG/72HR PATCH TRANSDERM ONE; ceFAZolin IN SWFI 2 GM/20 ML SYRINGE IVP ONE
--- NOTE | 2018-02-28 07:46 | P.GSHP ---
History of Present Illness H&P Date: 02/28/18 Chief Complaint: Incisional hernia Is a 7-year-old female who presents today for laparoscopic robotic-assisted repair of incisional hernia. Patient developed a incisional hernia in the left periumbilical area. Past Medical History Past Medical History: Diabetes Mellitus, Hyperlipidemia, Hypertension Additional Past Medical History / Comment(s): HEART MURMUR, HX OF HEPATITIS @ 4 YRS OLD, ANEMIA. INCISIONAL HERNIA History of Any Multi-Drug Resistant Organisms: MRSA Date of last positivie culture/infection: 2010 MDRO Source:: BEE STING Past Surgical History: Appendectomy, Section Additional Past Surgical History / Comment(s): PARATHYROID,TRIGGER FINGERS, C- SECTION X3, I & D OF HEMATOMA ON LEFT BUTTOCK, REMOVAL OF 17 LB OVARIAN CYST- BENIGN-INCISIONAL HERNIA NOW. Past Anesthesia/Blood Transfusion Reactions: No Reported Reaction Smoking Status: Never smoker - Past Family History Father Family Medical History: Hyperlipidemia, Myocardial Infarction ([place]) Additional Family Medical History / Comment(s): Father of heart attack at 92 years old. Mother Family Medical History: Diabetes Mellitus, Myocardial Infarction ([place]) Additional Family Medical History / Comment(s): Mom of heart attack at 54 years old. Medications and Allergies Home Medications Medication Instructions Recorded Confirmed Type Aspirin 81 mg PO DAILY 04/08/14 02/28/18 History Biotin 10 mg PO DAILY 04/08/14 02/28/18 History Enalapril Maleate 20 mg PO BID 04/08/14 02/28/18 History Fenofibrate 160 mg PO DAILY 04/08/14 02/28/18 History Fish Oil/Dha/Epa [Fish Oil 1,200 1 cap PO DAILY 04/08/14 02/28/18 History mg Fish Oil] Furosemide 40 mg PO DAILY 04/08/14 02/28/18 History Multivitamin with Iron [Daily 1 tab PO DAILY 04/08/14 02/28/18 History Multivitamin with Iron] Potassium Chloride [Klor-Con M10] 10 meq PO DAILY 04/08/14 02/28/18 History Propranolol HCl [Propranolol HCl 120 mg PO HS 04/08/14 02/28/18 History ER] Rosuvastatin [Crestor] 20 mg PO HS 04/08/14 02/28/18 History metFORMIN HCL 1,000 mg PO BID 04/08/14 02/28/18 History Cholecalciferol [Vitamin D3] 2,000 unit PO DAILY 03/14/15 02/28/18 History Glucosam/Lio-Msm1/C/Oren/Bosw 1 tab PO BID 03/14/15 02/28/18 History [Glucosamine-Chondroitin Tablet] amLODIPine [Norvasc] 5 mg PO HS 03/14/15 02/28/18 History Escitalopram [Lexapro] 10 mg PO DAILY 06/09/17 02/28/18 History Phentermine HCl [Adipex-P] 37.5 mg PO DAILY 06/09/17 02/28/18 History Soy Isofla/Blk Cohosh/Mag Bark 155 mg PO DAILY 06/09/17 02/28/18 History [Estroven 155 mg Capsule] Allergies Allergy/AdvReac Type Severity Reaction Status Date / Time nitroglycerin Allergy Severe BP DROPPED Verified 02/28/18 07:20 EXTREMELY LOW Penicillins Allergy Mild Rash/Hives Verified 02/28/18 07:20 amoxicillin Allergy Unknown Verified 02/28/18 07:20 iodine Allergy Rash/Hives Verified 02/28/18 07:20 erythromycin base AdvReac Mild HEADACHE Verified 02/28/18 07:20 codeine AdvReac Confusion Verified 02/28/18 07:20 Surgical - Exam - General well developed, well nourished, no distress - Eyes PERRL - ENT normal pinna - Neck no masses - Respiratory normal expansion - Cardiovascular Rhythm: regular - Abdomen Abdomen: soft, non tender Hernia: incisional (5 cm incisional hernia located in the left periumbilical area.) Assessment and Plan Assessment: Social hernia. We'll perform laparoscopic robotic-assisted repair.
[2018-02-28] MEDS ORDERED: KETOROLAC 30 MG/ML 1 ML VIAL ONE (07:50)
[2018-02-28] MEDS ORDERED: fentaNYL (PF) 50 MCG/ML 2 ML AMP ONE (07:50)
[2018-02-28] MEDS ORDERED: MIDAZOLAM 2 MG/2 ML VIAL ONE (07:50)
[2018-02-28] MEDS ORDERED: SUCCINYLCHOLINE CHLORIDE 100 MG/5 ML SYR IV ONE (07:50)
[2018-02-28] MEDS ORDERED: HYDROmorphone (PF) 1 MG/ML ONE (07:50)
[2018-02-28] MEDS ORDERED: LIDOCAINE 1% INJ 10MG/ML (20 ML MDV) ONE (07:50)
[2018-02-28] MEDS ORDERED: KETAMINE 10 MG/ML 20 ML VIAL ONE (07:50)
[2018-02-28] MEDS ORDERED: PROPOFOL 10 MG/ML 20 ML VIAL IV ONE (07:50)
[2018-02-28] MEDS ORDERED: NEOSTIGMINE 1 MG/ML 10 ML VIAL ONE (07:50)
[2018-02-28] MEDS ORDERED: ROCURONIUM BROMIDE 10 MG/ML 10 ML VIAL IV ONE ×2 (07:50)
[2018-02-28] MEDS ORDERED: GLYCOPYRROLATE 0.2 MG/ML 2 ML VIAL ONE (07:50)
[2018-02-28 07:51] LABS: Glucose,Whole Blood 96 mg/dL (75-99)
[2018-02-28] MEDS ORDERED: BUPIVACAIN-EPI 0.25%-1:200,000 30 ML VIAL SQ ONE (08:11)
[2018-02-28] MEDS ORDERED: LACTATED RINGERS 1,000 ML IV ONE ×2 (08:57→11:18)
[2018-02-28 09:28] VITALS: TEMP 97.3
[2018-02-28 09:35] LABS: Glucose,Whole Blood 161 mg/dL (75-99)
[2018-02-28] MEDS: HYDROmorphone 0.5 MG/0.5 ML SYRINGE IVP PRN ×3 (09:41→10:09)
--- NOTE | 2018-02-28 09:45 | P.OP ---
Date of Procedure: 02/28/18 Preoperative Diagnosis: Incisional hernia Postoperative Diagnosis: Adhesions Incisional hernia Procedure(s) Performed: Laparoscopic lysis of adhesions Laparoscopic robotic system repair of incisional hernia Anesthesia: LAYLA Surgeon: Rubin Bingham Estimated Blood Loss (ml): 5 Pathology: none sent Condition: stable Disposition: PACU Description of Procedure: The patient was placed on the operating table in the supine position. He received general anesthesia. His abdomen was prepped and draped usual fashion. Using a 5 mm optical trocar under direct visualization the peritoneal cavity was entered in the left upper quadrant. The abdomen was then insufflated. The laparoscope was placed back into the perineal cavity. Next a 8 mm robotic trocar was placed in the left lower quadrant and a 12 mm robotic trocar was placed in the left lateral position. The original 5 mm trocar was exchanged for a 8 mm robotic trocar. The patient's placed in the left side up position. And the patient was docked to the robot. The incisional hernia was visualized. Using hook cautery the adhesions were lysed. Using hook cautery the peritoneum over the incisional hernia was excised. The fascial opening was repaired using 0V LOC suture. Next a piece of 11 cm round ventral light ST mesh was placed into the. Cavity and secured with 2 OV lock suture. The patient was undocked the robot. The needles were retrieved. The fascia of the 12 mm trocar site was closed with 0 Ethibond suture. Skin was closed interrupted 3-0 Monocryl suture. Dermabond dressings was applied. Patient tolerated procedure well and was sent to recovery room stable condition.
[2018-02-28] MEDS ORDERED: HYDROcodone/APAP 7.5-325MG 1 EACH TAB PO ONE (10:39)
[2018-02-28 14:25] VITALS: BP 134/60; PULSE 54; RESP 16
[2018-02-28 14:44] LABS: Glucose,Whole Blood 135 mg/dL (75-99)
== END 2018-02-28 15:18 | disposition home or self-care (01) ==
LOC: OR 06:55
PROVIDERS: ATTEND Surgery
DX: K43.2 Incisional hernia without obstruction or gangrene (principal); D64.9 Anemia, unspecified; E11.9 Type 2 diabetes mellitus without complications; E78.5 Hyperlipidemia, unspecified; I10 Essential (primary) hypertension; Z79.82 Long term (current) use of aspirin; Z88.0 Allergy status to penicillin; Z88.1 Allergy status to other antibiotic agents; Z88.5 Allergy status to narcotic agent; Z79.84 Long term (current) use of oral hypoglycemic drugs; Z79.899 Other long term (current) drug therapy; Z91.041 Radiographic dye allergy status; F32.9 Major depressive disorder, single episode, unspecified
CPT/HCPCS: 49654; S2900

== ENCOUNTER → 2020-02-20 | Outpatient (CLI) | payer BC ==
--- NOTE | 2020-02-22 16:17 | BD ---
EXAMINATION TYPE: Axial Bone Density DATE OF EXAM: 02/20/2020 COMPARISON: NONE CLINICAL HISTORY: Height: 65.5 Weight: 233.0 FRAX RISK QUESTIONS: Alcohol (3 or more units per day): NO Family History (Parent hip fracture): no Glucocorticoids (More than 3mos): no (Ex: prednisone, prednisolone, methylprednisolone, dexamethasone, and hydrocortisone). History of Fracture in Adulthood: yes Secondary Osteoporosis: 1. Type 1 Diabetes: no 2. Hyperthyroidism: no 3. Menopause before 45: no 4. Malnutrition: no 5. Chronic liver disease: yes Rheumatoid Arthritis: no Current Tobacco Use: no RISK FACTORS HISTORY OF: Surgery to Spine/Hip(right/left)/Wrist (right/left): no Family History of Osteoporosis: yes Active: yes Diet low in dairy products/other sources of calcium: no Postmenopausal woman: age 51 Lost more than 2 inches in height since high school: no MEDICATIONS: metformin, furosemide, enalapril, escitalopram Additional History: EXAM MEASUREMENTS: Bone mineral densitometry was performed using the [employer]. Bone mineral density as measured about the Lumbar spine is: ----- L1-L4(G/cm2): 1.101 T Score Values are as follows: ----- L2: -0.8 ----- L3: -0.8 ----- L4: -1.0 ----- L1-L4: -0.7 Bone mineral density : baseline Bone mineral density about the R hip (g/cm2): 1.093 Bone mineral density about the L hip (g/cm2): 1.068 T Score values are as follows: -----R Neck: 0.4 -----L Neck: 0.2 -----R Total: 1.2 -----L Total: 1.5 Bone mineral density : baseline IMPRESSION: Normal (Values between +1 and -1 indicate normal bone mass). Consider repeating this study in 5 year s or sooner if there is some new clinical indication. NOTE: T-SCORE=SD OF THE YOUNG ADULT MEAN.
--- NOTE | 2020-02-25 08:32 | MM ---
Reason for exam: screening (asymptomatic). History: Patient is postmenopausal. Family history of breast cancer in maternal aunt. Physical Findings: A clinical breast exam by your physician is recommended on an annual basis and results should be correlated with mammographic findings. MG Screening Mammo w CAD Bilateral CC and MLO view(s) were taken. No prior studies available for comparison. The breast tissue is almost entirely fat. Finding: There is a typically benign 2 mm circumscribed oval mass located 10 cm from the nipple in the posterior position of the right breast CC position. There is no discrete abnormality. ASSESSMENT: Probably benign, BI-RAD 3 RECOMMENDATION: Follow-up diagnostic mammogram of the right breast in 6 months.
== END | disposition home or self-care (01) ==
LOC: RADMAMWWP 14:40
PROVIDERS: ATTEND Family Medicine
DX: Z12.31 Encounter for screening mammogram for malignant neoplasm of breast (principal); Z80.3 Family history of malignant neoplasm of breast; Z78.0 Asymptomatic menopausal state
CPT/HCPCS: 77067; 77080

== ENCOUNTER → 2020-09-23 | Outpatient (CLI) | payer BC ==
--- NOTE | 2020-09-23 12:05 | MM ---
Reason for exam: follow-up at short interval from prior study. Last mammogram was performed 7 months ago. History: Patient is postmenopausal. Family history of breast cancer in maternal aunt. Physical Findings: Nurse did not find any significant physical abnormalities on exam. MG 3D Diag Mammo W/Cad RT CC and MLO view(s) were taken of the right breast. Prior study comparison: February 20, 2020, bilateral MG screening mammo w CAD. There are scattered fibroglandular densities. Right 5mm nodule slighly inferior medial right breast at 4-5 o'clock 14.5cm from nipple. These results were verbally communicated with the patient and result sheet given to the patient on 09/23/20. ASSESSMENT: Incomplete: need additional imaging evaluation, BI-RAD 0 RECOMMENDATION: Ultrasound of the right breast.
--- NOTE | 2020-09-23 12:07 | USB ---
Reason for exam: additional evaluation requested from abnormal screening. History: Patient is postmenopausal. Family history of breast cancer in maternal aunt. US Breast Limited RT Right limited breast ultrasound including focal area of concern, retroareolar and axilla demonstrates no cystic or solid lesion seen. No sonographic findings. Probably benign, right diagnostic mammogram in 6 months. These results were verbally communicated with the patient and result sheet given to the patient on 09/23/20. ASSESSMENT: Probably benign, BI-RAD 3 RECOMMENDATION: Follow-up diagnostic mammogram of both breasts in 5 months. Back on schedule for January 2021.
== END | disposition home or self-care (01) ==
LOC: RADMAMWWP 10:19
PROVIDERS: ATTEND Family Medicine
DX: Z78.0 Asymptomatic menopausal state (principal); Z80.3 Family history of malignant neoplasm of breast
CPT/HCPCS: 77061; 77065

== ENCOUNTER → 2020-12-23 | Outpatient (CLI) | payer BC ==
--- NOTE | 2020-12-23 10:09 | US ---
EXAMINATION TYPE: US thyroid st tissue head/neck DATE OF EXAM: 12/23/2020 COMPARISON: NONE CLINICAL HISTORY: 70-year-old female E04.1 thyroid nodule. TECHNIQUE: Multiple sonographic images of the thyroid gland are obtained. FINDINGS: GLAND SIZE: Right Lobe: 4.4 x 1.5 x 1.6 cm Overall Parenchyma: homogenous Left Lobe: 4.0 x 1.7 x1.7 cm Overall Parenchyma: homogeneous Isthmus Thickness: 0.5 cm NODULES RIGHT: # of nodules measured on right: 0 LEFT: # of nodules measured on left: 0 1. 0.6 X 0.5 x 0.6 cm, lower, solid or almost completely solid, isoechoic TR 3 nodule, which is wid er than tall, with smooth margins, echogenic foci. No prior ISTHMUS: # of nodules measured in the isthmus: 0 Bilateral neck scanned, no evidence of lymphadenopathy. IMPRESSION: Solitary 6 mm mixed solid cystic TR3 nodule in the left lobe. Follow-up can be considered.
== END | disposition home or self-care (01) ==
LOC: RADUSWWP 08:25
PROVIDERS: ATTEND Family Medicine
DX: E04.1 Nontoxic single thyroid nodule (principal)
CPT/HCPCS: 76536

== ENCOUNTER → 2021-02-24 | Outpatient (CLI) | payer BC ==
--- NOTE | 2021-02-24 14:22 | MM ---
Reason for exam: additional evaluation requested from prior study. Last mammogram was performed 5 months ago. History: Patient is postmenopausal. Family history of breast cancer in maternal aunt. Physical Findings: Nurse did not find any significant physical abnormalities on exam. MG Diagnostic Mammo w CAD JOURDAN Bilateral CC and MLO view(s) were taken. Prior study comparison: September 23, 2020, right breast MG 3d diag mammo w/cad RT. February 20, 2020, bilateral MG screening mammo w CAD. There are scattered fibroglandular densities. There is chronic nodularity in the right breast. No significant new findings when compared with previous films. These results were verbally communicated with the patient and result sheet given to the patient on 02/24/21. ASSESSMENT: Benign, BI-RAD 2 RECOMMENDATION: Routine screening mammogram of both breasts in 1 year.
== END | disposition home or self-care (01) ==
LOC: RADMAMWWP 12:52
PROVIDERS: ATTEND Nurse Practitioner Women's Health
DX: R92.8 Other abnormal and inconclusive findings on diagnostic imaging of breast (principal)
CPT/HCPCS: 77066

== ENCOUNTER 2024-04-16 12:30 | Day surgery (SDC) | payer BC ==
[~2024-04-16 12:30] MED LIST changes: -DEXAMETHASONE SOD PHOSPHATE 10 MG/ML 1 ML VIAL IV ONE; -HEPARIN SODIUM,PORCINE 5,000 UNIT/ML 1 ML VIAL SQ ONE; +LIDOCAINE 1% (10MG/ML) FOR IV START INTRADERMA PRN; -LIDOCAINE 1% 20 ML VIAL (10MG/ML) FOR IV START INTRADERMA PRN; -ONDANSETRON 4 MG/2 ML VIAL IVP ONE; -SCOPOLAMINE 1.5MG/72HR PATCH TRANSDERM ONE; -ceFAZolin IN SWFI 2 GM/20 ML SYRINGE IVP ONE
[2024-04-16 12:58] VITALS: TEMP 97.5
[2024-04-16] MEDS: IV FLUID CONTINUATION 1,000 ML IV ONE (13:02)
[2024-04-16 13:07] LABS: Glucose,Whole Blood 93 mg/dL (70-110)
[2024-04-16] MEDS: LACTATED RINGERS 500 ML IV ONE (13:08)
[2024-04-16] MEDS ORDERED: PROPOFOL 10 MG/ML 20 ML VIAL IV ONE (13:08)
[2024-04-16] MEDS ORDERED: LIDOCAINE 1% INJ 10MG/ML (20 ML MDV) ONE (13:08)
--- NOTE | 2024-04-16 13:16 | P.GSHP ---
History of Present Illness H&P Date: 04/16/24 Chief Complaint: Screening colonoscopy This is a 73-year-old female who presents today for colonoscop. patient has previous history of colon polyps. Past Medical History Past Medical History: Diabetes Mellitus, Hyperlipidemia, Hypertension, Musculoskeletal Disorder, Osteoarthritis ([place]) Additional Past Medical History / Comment(s): HEART MURMUR, HX OF HEPATITIS @ 4 YRS OLD, ANEMIA. L foot fracture 2020 (resolved), chronic B/L knee pain, history of mononucleosis (resolved), vertebrae compression, sciatica (resolved). Covid-15 March 2022, Fuch's disease B/L eyes, migraines, vertigo-no current issues. History of Any Multi-Drug Resistant Organisms: MRSA Date of last positivie culture/infection: 2010 MDRO Source:: BEE STING on forehead Past Surgical History: Appendectomy, Section Additional Past Surgical History / Comment(s): partial parathyroidectomy,TRIGGER FINGERS repair X5, X3, I & D OF HEMATOMA ON LEFT BUTTOCK, REMOVAL OF 17 LB OVARIAN CYST, Hernia repair surgery approx 2018, TFCC L wrist repair, R and L carpal tunnel surgery, past colonoscopy 10 years ago Past Anesthesia/Blood Transfusion Reactions: No Reported Reaction Additional Past Anesthesia/Blood Transfusion Reaction / Comment(s): No history of blood transfusion Smoking Status: Never smoker - Past Family History Father Family Medical History: Hyperlipidemia, Myocardial Infarction ([place]) Additional Family Medical History / Comment(s): Father of heart attack at 92 years old. Mother Family Medical History: Diabetes Mellitus, Myocardial Infarction ([place]) Additional Family Medical History / Comment(s): Mom of heart attack at 54 years old. Medications and Allergies Home Medications Medication Instructions Recorded Confirmed Type Aspirin 81 mg PO DAILY 04/08/14 04/16/24 History Enalapril Maleate 20 mg PO BID 04/08/14 04/16/24 History Fenofibrate 160 mg PO QAM 04/08/14 04/16/24 History Fish Oil/Dha/Epa [Fish Oil 1,200 1 cap PO DAILY 04/08/14 04/16/24 History mg Fish Oil] Furosemide 40 mg PO DAILY 04/08/14 04/16/24 History Multivitamin with Iron [Daily 1 tab PO DAILY 04/08/14 04/16/24 History Multivitamin with Iron] Potassium Chloride [Klor-Con M10] 10 meq PO QAM 04/08/14 04/16/24 History Propranolol HCl [Propranolol HCl 120 mg PO HS 04/08/14 04/16/24 History ER] Rosuvastatin [Crestor] 20 mg PO HS 04/08/14 04/16/24 History metFORMIN HCL [Glucophage] 1,000 mg PO BID 04/08/14 04/16/24 History Cholecalciferol [Vitamin D3 (25 1,000 unit PO DAILY 03/14/15 04/16/24 History Mcg = 1000 Iu)] Glucosam/Lio-Msm1/C/Oren/Bosw 1 tab PO BID 03/14/15 04/16/24 History [Glucosamine-Chondroitin Tablet] amLODIPine [Norvasc] 5 mg PO HS 03/14/15 04/16/24 History Phentermine HCl [Adipex-P] 37.5 mg PO QAM 06/09/17 04/16/24 History Soy Isofla/Blk Cohosh/Mag Bark 155 mg PO DAILY 06/09/17 04/16/24 History [Estroven 155 mg Capsule] Ascorbic Acid [Vitamin C] 500 mg PO DAILY 04/13/24 04/16/24 History Celecoxib [CeleBREX] 200 mg PO BID 04/13/24 04/16/24 History Oxybutynin Chloride [oxyBUTYnin 10 mg PO QAM 04/13/24 04/16/24 History chloride ER] Polyvinyl Alcohol/Povidone 1 applic BOTH EYES QID 04/13/24 04/16/24 History [Freshkote Eye Drop] Tirzepatide [Mounjaro] 12.5 mg SQ HAQUE 04/13/24 04/16/24 History traMADol HCL 50 mg PO Q6HR PRN 04/13/24 04/16/24 History Allergies Allergy/AdvReac Type Severity Reaction Status Date / Time nitroglycerin Allergy Severe BP DROPPED Verified 04/16/24 12:45 EXTREMELY LOW Penicillins Allergy Mild Rash/Hives Verified 04/16/24 12:45 iodine Allergy Rash/Hives Verified 04/16/24 12:45 erythromycin base AdvReac Mild HEADACHE Verified 04/16/24 12:45 codeine AdvReac Confusion Verified 04/16/24 12:45 Surgical - Exam Vital Signs Temp Pulse Resp BP Pulse Ox 97.5 F L 77 16 153/70 97 04/16/24 12:52 04/16/24 12:52 04/16/24 12:52 04/16/24 12:52 04/16/24 12:52 - General well developed, well nourished, no distress - Eyes PERRL - ENT normal pinna - Neck no masses - Respiratory normal expansion - Cardiovascular Rhythm: regular - Abdomen Abdomen: soft, non tender Assessment and Plan Plan: Will perform colonoscopy.
--- NOTE | 2024-04-16 13:32 | P.OP ---
Date of Procedure: 04/16/24 Preoperative Diagnosis: Screening colonoscopy Postoperative Diagnosis: Diverticulosis Procedure(s) Performed: Colonoscopy Anesthesia: MAC Surgeon: Rubin Bingham Pathology: none sent Condition: stable Disposition: PACU Description of Procedure: The patient was placed on the endoscopy table in the lateral position. She received IV sedation. Digital rectal exam was performed. This revealed no abnormalities. The flexible colonoscope was then placed patient anus passed throughout the entire colon. The ileocecal valve was visualized. The cecum, ascending and transverse colon appeared normal. The descending and sigmoid colon ap was visualized. There is extensive diverticular changes. The scope Cinobac rectum this appeared normal. Scope withdrawn for the patient.
[2024-04-16 13:54] VITALS: BP 133/94; PULSE 63; RESP 18
== END 2024-04-16 14:30 | disposition home or self-care (01) ==
LOC: ORWHC2ENDO 12:30
PROVIDERS: ATTEND Surgery
DX: Z12.11 Encounter for screening for malignant neoplasm of colon (principal); K57.30 Diverticulosis of large intestine without perforation or abscess without bleeding; I10 Essential (primary) hypertension; E78.5 Hyperlipidemia, unspecified; E11.9 Type 2 diabetes mellitus without complications; M19.90 Unspecified osteoarthritis, unspecified site; Z79.84 Long term (current) use of oral hypoglycemic drugs; Z86.0100 Personal history of colon polyps, unspecified; Z86.16 Personal history of COVID-19; Z88.0 Allergy status to penicillin; Z88.1 Allergy status to other antibiotic agents; Z88.5 Allergy status to narcotic agent; Z88.8 Allergy status to other drugs, medicaments and biological substances; Z90.49 Acquired absence of other specified parts of digestive tract; Z91.030 Bee allergy status; Z91.041 Radiographic dye allergy status; Z98.890 Other specified postprocedural states; Z79.82 Long term (current) use of aspirin; Z79.899 Other long term (current) drug therapy
CPT/HCPCS: 45378; J2003; J2704